=== PATIENT | female | born 1960 | race Caucasian/White ===

== ENCOUNTER 2017-03-03 04:40 | Outpatient (CLI) ==
[2017-03-03 12:50] VITALS: BMI 42.2
== END 2017-03-03 04:41 | disposition critical access hospital (66) ==
LOC: AMBL 04:40
PROVIDERS: ATTEND Family Medicine
DX: R09.2 Respiratory arrest (principal); E66.01 Morbid (severe) obesity due to excess calories

== ENCOUNTER 2017-03-03 05:08 | Emergency (ER) ==
[2017-03-03] MEDS ORDERED: SODIUM CHLORIDE 1,000 ML IV STA (05:10)
[2017-03-03] MEDS ORDERED: EPINEPHRINE 1:10,000 SYRINGE IV STA ×4 (05:39→05:40)
[2017-03-03] MEDS ORDERED: SODIUM BICARBONATE 8.4% IVP STA ×2 (05:40→05:41)
--- NOTE | 2017-03-03 05:46 | ED.PDOC ---
General ED Provider: Dr. BABAK MARTI-ER Chief Complaint: Cardiac Arrest Stated Complaint: medics responded to patient sitting on porch and thought to be in resp distress--became pulseless and patient subsequently intubated and transported here Time Seen by Physician: 05:00 Mode of Arrival: Ambulance Information Source: EMT Exam Limitations: Clinical condition Nursing and Triage Documentation Reviewed and Agree: Yes Cardiac Resuscitation - Cardiac Resuscitation Onset/Duration: Unknown Witnessed Arrest: Yes Down-time Before BLS Initiated: unknown Airway Prehospital Findings: Reports: Patent Breathing Prehospital Findings: Reports: Respiratory distress Circulation/Rhythm Prehospital Findings: Reports: Pulses absent, Asystole Disability/Neurological Prehospital Findings: Reports: Unresponsive Breathing Prehospital Intervention: Reports: Intubation Circulation/Rhythm Prehospital Intervention: Reports: Chest compressions Airway Prehospital Response: no response Breathing Prehospital Response: Present: ETT in airway Circulation/Rhythm Prehospital Response: Present: Pulses absent, Asystole Airway ED Findings: Patent Breathing ED Findings: Present: Apnea Circulation/Rhythm ED Findings: Present: Pulses absent Disability/Neurological ED Findings: Present: Unresponsive Circulation/Rhythm ED Intervention: Chest compressions, IV/IO placed, Epinephrine Airway ED Response: no response Breathing ED Response: ETT in airway, Equal breath sounds, Confirmed by auscultation Circulation/Rhythm ED Response: Present: Pulses absent, Asystole Right Pupil: Fixed, Dilated Left Pupil: Fixed, Dilated Review Of Systems: Unable due to extremis EMS/Code Sheet Reviewed: Yes Resuscitation Successful: No Differential Diagnoses: Asystole, Card. Rhythm Disturbance, PEA, Respiratory Failure Past Medical History - Past Medical History Previously Healthy: No (unknown hx) Endocrine: Reports: Unknown Cardiovascular: Reports: Unknown Respiratory: Reports: Unknown Hematological: Reports: Unknown Gastrointestinal: Reports: Unknown Genitourinary: Reports: Unknown Neuro/Psych: Reports: Unknown Musculoskeletal: Reports: Unknown Cancer: Reports: Unknown - Surgical History General Surgical History: Reports: Unknown - Family History Family History: Reports: Unknown Interpretation - Radiology Interpretation Radiology Interpretation By: ED Physician Radiology Results: Negative Exam Interpreted: Portable CXR Procedures - IV/Art Line Insertion Location: io Number of Attempts: 1 Blood Return Positive: Yes Invasive Line/IV Flushes Without Difficulty: Yes Critical Care Note - Critical Care Note Total Time (mins): 30 Course - Course Orders, Labs, Meds: Orders Category Date Time Status ABG DRAW REQUEST Stat CARDIO 03/03/17 05:09 Ordered EKG-(ED ONLY) Stat CARDIO 03/03/17 05:09 Ordered VENTILATOR Routine CARDIO 03/03/17 05:42 Ordered IV [ED IV/MEDIPORT/POWERPORT] .ONCE EMERGENCY 03/03/17 05:10 Active ABG DAILY@0600 LAB 03/03/17 06:00 Ordered ABG DAILY@0600 LAB 03/04/17 06:00 Ordered ABG DAILY@0600 LAB 03/05/17 06:00 Ordered ABG DAILY@0600 LAB 03/06/17 06:00 Ordered ABG Stat LAB 03/03/17 05:09 Ordered ABG Stat LAB 03/03/17 05:42 Ordered B-TYPE NATRIURETIC PEPTIDE Stat LAB 03/03/17 05:11 Ordered CBC W/ AUTO DIFF Stat LAB 03/03/17 05:09 Ordered COMPREHENSIVE METABOLIC PANEL Stat LAB 03/03/17 05:09 Ordered CREATINE KINASE Stat LAB 03/03/17 05:10 Ordered D-DIMER Stat LAB 03/03/17 Ordered TROPONIN I Stat LAB 03/03/17 05:10 Ordered 0.9 % Sodium Chloride [Saline Flush] MEDS 03/03/17 05:10 Ordered 1 syr IVF PRN PRN Epinephrine [Epinephrine 1:10,000 Syringe] MEDS 03/03/17 05:39 Stat 1 mg IV ONCE STA Epinephrine [Epinephrine 1:10,000 Syringe] MEDS 03/03/17 05:40 Stat 1 mg IV ONCE STA Epinephrine [Epinephrine 1:10,000 Syringe] MEDS 03/03/17 05:40 Stat 1 mg IV ONCE STA Epinephrine [Epinephrine 1:10,000 Syringe] MEDS 03/03/17 05:40 Stat 1 mg IV ONCE STA Sodium Bicarbonate [Sodium Bicarbonate 8.4%] MEDS 03/03/17 05:40 Stat 50 meq IVP ONCE STA Sodium Bicarbonate [Sodium Bicarbonate 8.4%] MEDS 03/03/17 05:41 Stat 50 meq IVP ONCE STA Sodium Chloride 0.9% [Sodium Chloride] 1,000 ml MEDS 03/03/17 05:10 Active IV 100 mls/hr CXR [CHEST, 1V AP ONLY] Stat RADS 03/03/17 05:11 Ordered Medications Generic Name Dose Route Start Last Admin Trade Name Freq PRN Reason Stop Dose Admin Epinephrine HCl 1 mg 03/03/17 05:39 Epinephrine 1:10,000 Syringe IV 03/03/17 05:40 ONCE STA Epinephrine HCl 1 mg 03/03/17 05:40 Epinephrine 1:10,000 Syringe IV 03/03/17 05:41 ONCE STA Epinephrine HCl 1 mg 03/03/17 05:40 Epinephrine 1:10,000 Syringe IV 03/03/17 05:41 ONCE STA Epinephrine HCl 1 mg 03/03/17 05:40 Epinephrine 1:10,000 Syringe IV 03/03/17 05:41 ONCE STA Sodium Chloride 1,000 mls @ 100 mls/hr 03/03/17 05:10 Sodium Chloride IV 03/03/17 15:09 .Q10H STA Sodium Bicarbonate 50 meq 03/03/17 05:40 Sodium Bicarbonate 8.4% IVP 03/03/17 05:41 ONCE STA Sodium Bicarbonate 50 meq 03/03/17 05:41 Sodium Bicarbonate 8.4% IVP 03/03/17 05:42 ONCE STA Sodium Chloride 1 syr 03/03/17 05:10 Saline Flush IVF PRN PRN To flush IV Departure - Departure Time of Disposition: 05:49 Disposition: Discharge Problem: Cardiac arrest Condition: Pt referred to PMD for follow-up: No (unknown pmd) Disposition Discussed With: Other (no family here)
[2017-03-03 06:56] VITALS: BP 48/28
--- NOTE | 2017-03-03 07:33 | DI ---
Exam: Two x-rays of the chest. Comparison: 08/20/2016. Reason for exam: Intubation. FINDINGS: Endotracheal tube is seen with the tip located above the level of the tricia. Cardiac pac ing pads are seen overlying the mid portion of the mediastinum. The cardiac silhouette remains promi nent in size. There are increased interstitial lung markings seen throughout the lung parenchyma. N o focal consolidation is seen. The right costophrenic angle is clipped from the cassette. There are old left-sided rib fractures. Impression: 1. Similar appearing cardiomegaly with interstitial nterstitial edema. 2. Patchy airspace opacities consistent with atelectasis or early pneumonia. No focal consolidation
[2017-03-03 12:50] VITALS: BMI 42.2
== END 2017-03-03 05:30 | disposition expired ==
LOC: ED 05:08 → EDBD 05:08 → ED 05:30
DX: I46.9 Cardiac arrest, cause unspecified (principal)
CPT/HCPCS: 96374; 96375; 99285